=== PATIENT | male | born 1980 | race African-American/Black ===

== ENCOUNTER 2021-08-19 00:33 | Inpatient (IN) | payer OTHER ==
[2021-08-19] MEDS ORDERED: SODIUM CHLORIDE 0.9% 500 ML INFUS.BAG IV ONE ×3 (01:33→04:56)
[2021-08-19] MEDS ORDERED: FAMOTIDINE 20 MG/50 ML IVPB 20 MG/50 ML MG IVPB ONE (01:33)
[2021-08-19] MEDS ORDERED: MAG HYDROX/AL HYDROX/SIMETH 30 ML UNIT-DOSE CUP PO ONE (01:33)
[2021-08-19] MEDS ORDERED: ACETAMINOPHEN 1000 MG/100 ML BAG IVPB ONE (01:33)
[2021-08-19] MEDS ORDERED: ONDANSETRON 4 MG/2 ML VIAL IVPUSH ONE (01:33)
[2021-08-19 02:08] LABS: BASO % 0.2 % (0-2.0); EOS % 0.1 % (0-4.5); HEMATOCRIT 50.1 % (35.4-49); HEMOGLOBIN 17.6 GM/dL (11.7-16.9); MCH 30.1 pg (25.7-33.7); MONO % 12.4 % (3.8-10.2); NEUT % 66.3 % (42.8-82.8); PLATELET COUNT 232 10^3/uL (134-434); RBC 5.83 M/mm3 (4.00-5.60); RDW 14.5 % (11.9-15.9); WHITE BLOOD COUNT 5.6 K/mm3 (4.0-10.0)
[2021-08-19 02:37] LABS: ALBUMIN 4.2 g/dl (3.4-5.0); BLOOD UREA NITROGEN 42.2 mg/dL (7-18); MAGNESIUM 2.4 mg/dL (1.8-2.4)
[2021-08-19 02:40] LABS: CREATININE 2.1 mg/dL (0.55-1.3)
[2021-08-19 02:42] LABS: TOT PROT 8.8 g/dl (6.4-8.2)
[2021-08-19] MEDS ORDERED: ONDANSETRON 4 MG/2 ML VIAL IVPUSH PRN (06:46)
[2021-08-19 06:55] LABS: EPI CELLS 6 /uL (0-25.1); HYALINE CASTS 1 /uL (0-3.1); PH,URINE 5.5 (5.0-8.0); URINE APPEARANCE CLEAR; URINE BACTERIA 56 /uL (0-1359); URINE BILIRUBIN NEGATIVE (NEGATIVE); URINE COLOR YELLOW; URINE GLUCOSE (UA) NEGATIVE (NEGATIVE); URINE KETONE 1+ (NEGATIVE); URINE LEUK ESTERASE NEGATIVE (NEGATIVE); URINE NITRITE NEGATIVE (NEGATIVE); URINE PROTEIN 1+ (NEGATIVE); URINE RBC 23 /uL (0-23.9); URINE UROBILINOGEN 0.2 mg/dL (0.2-1.0); URINE WBC 5 /uL (0-25.8)
[2021-08-19] MEDS ORDERED: SODIUM CHLORIDE 1,000 ML IV SCH (07:00)
[2021-08-19 07:18] LABS: CHLORIDE 104 mmol/L (98-107); SODIUM 139 mmol/L (136-145)
[2021-08-19 07:19] LABS: ANION GAP 7 MMOL/L (8-16); CO2 28 mmol/L (21-32); GLUCOSE,RANDOM 96 mg/dL (74-106)
[2021-08-19 07:20] LABS: BLOOD UREA NITROGEN 34.4 mg/dL (7-18)
[2021-08-19 07:23] LABS: CREATININE 1.6 mg/dL (0.55-1.3)
[2021-08-19 08:18] LABS: CALCIUM 6.8 mg/dL (8.5-10.1)
[2021-08-19] MEDS ORDERED: KCL 10 MEQ IVPB 10 MEQ/100 ML INFUS.BAG IVPB SCH ×2 (12:45→14:00)
[2021-08-19] MEDS: SODIUM CHLORIDE 0.9%/KCL 20 MEQ/1,000 ML INFUS.BAG IV SCH (13:17)
[2021-08-19] MEDS ORDERED: CEFTRIAXONE 1 GM in DEXTROSE 5%-WATER - 50 ML IVPB SCH (14:15)
[2021-08-19 14:50] VITALS: BMI 28.3
[2021-08-19 15:48] LABS: BILIRUBIN,DIRECT 0.3 mg/dL (0.0-0.2)
[2021-08-19 15:49] LABS: PHOSPHOROUS 4.3 mg/dL (2.5-4.9); SGOT/AST 21 U/L (15-37); SGPT/ALT 22 U/L (13-61)
[2021-08-19 15:50] LABS: BILIRUBIN,TOTAL 0.8 mg/dL (0.2-1)
[2021-08-19 15:52] LABS: ALBUMIN 3.2 g/dl (3.4-5.0); ALK PHOS 44 U/L (45-117); TOT PROT 6.5 g/dl (6.4-8.2)
[2021-08-19] MEDS: FAMOTIDINE 20 MG/50 ML IVPB 20 MG/50 ML MG IVPB SCH (21:54)
[2021-08-20] MEDS: SODIUM CHLORIDE 0.9%/KCL 20 MEQ/1,000 ML INFUS.BAG IV SCH ×4 (01:35→21:07)
[2021-08-20 09:01] LABS: BASO % 0.3 % (0-2.0); EOS % 0.5 % (0-4.5); HEMATOCRIT 39.4 % (35.4-49); HEMOGLOBIN 13.8 GM/dL (11.7-16.9); LYMPH % 25.8 % (8-40); MCH 30.1 pg (25.7-33.7); MCHC 34.9 g/dl (32.0-35.9); MEAN CELL VOLUME 86.2 fl (80-96); MEAN PLT VOLUME 7.7 fl (7.5-11.1); MONO % 16.1 % (3.8-10.2); NEUT % 57.3 % (42.8-82.8); PLATELET COUNT 202 10^3/uL (134-434); RBC 4.58 M/mm3 (4.00-5.60); RDW 14.4 % (11.9-15.9); WHITE BLOOD COUNT 6.1 K/mm3 (4.0-10.0)
[2021-08-20 09:34] LABS: BLOOD UREA NITROGEN 14.1 mg/dL (7-18); CALCIUM 7.7 mg/dL (8.5-10.1)
[2021-08-20 09:37] LABS: CREATININE 1.4 mg/dL (0.55-1.3)
[2021-08-20] MEDS: FAMOTIDINE 20 MG/50 ML IVPB 20 MG/50 ML MG IVPB SCH ×2 (10:03→21:04)
[2021-08-20] MEDS: ENOXAPARIN NA (PORCINE) 40 MG/0.4 ML DISP.SYRIN SQ SCH (10:06)
[2021-08-20] MEDS: ACETAMINOPHEN 325 MG TABLET (FP) PO PRN (21:04)
[2021-08-21] MEDS: SODIUM CHLORIDE 0.9%/KCL 20 MEQ/1,000 ML INFUS.BAG IV SCH ×2 (06:01→16:31)
[2021-08-21 09:45] LABS: HEMATOCRIT 38.1 % (35.4-49); HEMOGLOBIN 13.4 GM/dL (11.7-16.9); MCH 29.7 pg (25.7-33.7); MCHC 35.1 g/dl (32.0-35.9); MEAN CELL VOLUME 84.6 fl (80-96); MEAN PLT VOLUME 7.4 fl (7.5-11.1); PLATELET COUNT 200 10^3/uL (134-434); RDW 14.1 % (11.9-15.9); WHITE BLOOD COUNT 5.9 K/mm3 (4.0-10.0)
[2021-08-21] MEDS: ENOXAPARIN NA (PORCINE) 40 MG/0.4 ML DISP.SYRIN SQ SCH (10:07)
[2021-08-21] MEDS: FAMOTIDINE 20 MG/50 ML IVPB 20 MG/50 ML MG IVPB SCH (10:07)
[2021-08-21 10:13] LABS: CALCIUM 7.7 mg/dL (8.5-10.1)
[2021-08-21 10:14] LABS: BLOOD UREA NITROGEN 9.8 mg/dL (7-18)
[2021-08-21 10:17] LABS: CREATININE 1.3 mg/dL (0.55-1.3)
[2021-08-21 11:47] LABS: MAGNESIUM 1.8 mg/dL (1.8-2.4)
[2021-08-21 11:51] LABS: PHOSPHOROUS 2.2 mg/dL (2.5-4.9)
[2021-08-21] MEDS ORDERED: NAPH,MB-DB/K PH,MBDB POWDER PACKET PO ONE (14:15)
[2021-08-21] MEDS ORDERED: POTASSIUM CHLORIDE 20 MEQ in SODIUM CHLORIDE 1,000 ML IV SCH (18:45)
[2021-08-21] MEDS: ACETAMINOPHEN 325 MG TABLET (FP) PO PRN (21:45)
[2021-08-22 09:13] LABS: MAGNESIUM 1.7 mg/dL (1.8-2.4)
[2021-08-22 09:14] LABS: BLOOD UREA NITROGEN 8.9 mg/dL (7-18)
[2021-08-22 09:17] LABS: CREATININE 1.2 mg/dL (0.55-1.3); PHOSPHOROUS 2.4 mg/dL (2.5-4.9)
[2021-08-22 09:20] LABS: HEMATOCRIT 38.1 % (35.4-49); HEMOGLOBIN 13.8 GM/dL (11.7-16.9); MCH 30.4 pg (25.7-33.7); MCHC 36.3 g/dl (32.0-35.9); MEAN CELL VOLUME 83.7 fl (80-96); MEAN PLT VOLUME 7.4 fl (7.5-11.1); PLATELET COUNT 213 10^3/uL (134-434); RBC 4.55 M/mm3 (4.00-5.60); RDW 14.2 % (11.9-15.9); WHITE BLOOD COUNT 5.7 K/mm3 (4.0-10.0)
[2021-08-22] MEDS: ENOXAPARIN NA (PORCINE) 40 MG/0.4 ML DISP.SYRIN SQ SCH (09:31)
[2021-08-22] MEDS ORDERED: MAGNESIUM CITRATE 300 ML BOTTLE PO ONE ×2 (10:21→11:45)
[2021-08-22] MEDS ORDERED: POTASSIUM CHLORIDE ORAL LIQUID 20 MEQ/15 ML PO ONE ×2 (10:21→12:00)
[2021-08-22] MEDS ORDERED: NAPH,MB-DB/K PH,MBDB POWDER PACKET PO ONE (10:21)
[2021-08-22] MEDS ORDERED: POTASSIUM CHLORIDE TABS 20 MEQ TABLET.ER (FP) PO ONE ×2 (10:23→14:15)
[2021-08-22] MEDS ORDERED: MAGNESIUM OXIDE 400 MG TABLET (FP) PO ONE ×2 (10:24→11:45)
[2021-08-22] MEDS ORDERED: MAGNESIUM SULF 50% (8.12 MEQ/2 ML-1 GM VIAL) IVPB ONE (10:51)
[2021-08-22 14:06] VITALS: TEMP 98.1
[2021-08-22 14:11] VITALS: BP 107/63; PULSE 78
== END 2021-08-22 15:42 | disposition home or self-care (01) | DRG 372 ==
LOC: JER 00:33 → JERBED 06:19 → J6S 10:02 → OBSVTOIN 08-21 10:53
PROVIDERS: ADMIT Hospitalist; ATTEND Internal Medicine
DX: A02.0 Salmonella enteritis (principal); N17.9 Acute kidney failure, unspecified; E86.0 Dehydration; E87.6 Hypokalemia
CPT/HCPCS: 36415; 71045-TC-FY; 74176-TC; 76705-TC; 80048; 80053; 80076; 81003; 83690; 83735; 84100; 85025; 85027; 87040; 87045; 87046; 87086; 87177; 87186; 87205; 87209; 87324; 87449; 93005; 93010; 99285-25; C9803; G0378; U0003; U0005